=== PATIENT | female | born 1935 | race Caucasian/White ===

== ENCOUNTER 2017-05-26 05:51 | Emergency (ER) | payer MEDICARE, BC ==
[~2017-05-26] VITALS: Ht 154.9 cm; Wt 53.6 kg
[2017-05-26 05:54] VITALS: BP 146/70; TEMP 98
[2017-05-26] MEDS ORDERED: AVALIDE 12.5 MG1 TAB PO (06:11)
[2017-05-26] MEDS ORDERED: SYNTHROID0.088 MG/T PO (06:11)
[2017-05-26] MEDS ORDERED: TYLENOL W/COD1 UDTAB PO (06:37)
[2017-05-26] MEDS ORDERED: ASPERCREME1 EACH TP (06:37)
[2017-05-26 07:00] VITALS: PULSE 86
== END 2017-05-26 07:05 | disposition home or self-care (01) ==
LOC: COL.ER 05:51
DX: S42.002A Fracture of unspecified part of left clavicle, initial encounter for closed fracture (principal); I10 Essential (primary) hypertension; E03.9 Hypothyroidism, unspecified; W01.0XXA Fall on same level from slipping, tripping and stumbling without subsequent striking against object, initial encounter; Y92.009 Unspecified place in unspecified non-institutional (private) residence as the place of occurrence of the external cause

== ENCOUNTER 2019-08-27 13:55 | Emergency (ER) | payer MEDICARE, BC ==
[~2019-08-27] VITALS: Ht 154.9 cm; Wt 55.5 kg
[~2019-08-27 13:55] MED LIST: ASPERCREME1 EACH TP; AVALIDE 12.5 MG1 TAB PO; SYNTHROID0.088 MG/T PO; TYLENOL W/COD1 UDTAB PO
[2019-08-27 14:02] VITALS: TEMP 97.5
[2019-08-27 14:37] LABS: BASO # 0.1 (0.0-0.2); BASO % 0.6 % (0.0-2.0); EOS % 0.3 % (0-4.0); GRAN # 9.3 (1.4-6.5); GRAN % 82.9 % (42.2-75.2); HEMATOCRIT 39.3 % (37.0-47.0); HEMOGLOBIN 13.2 g/dl (12.5-16.0); LYMPH # 1.1 (1.2-3.4); LYMPH % 9.6 % (20.0-51.0); MEAN CELL VOLUME 94 fl (80.0-100.0); MEAN CORPUSCULAR HEMOGLOBIN 32 pg (27.0-31.0); MEAN CORPUSCULAR HGB CONC 34 g/dl (33.0-37.0); MEAN PLATELET VOLUME 8.4 fl (7.4-10.4); MONO # 0.7 (0.1-0.6); MONO % 6.3 % (1.7-9.3); PLATELET COUNT 351 K/mm3 (130-400); RED BLOOD COUNT 4.17 M/mm3 (4.10-5.30); REDCELL DISTRIBUTION WIDTH-CV 12.6 % (11.5-14.5)
[2019-08-27 14:54] LABS: ALBUMIN 4.1 gm/dL (3.5-5.0); BILIRUBIN,TOTAL 0.5 mg/dL (0.0-1.0); CALCIUM 9.3 mg/dL (8.4-10.2); CREATININE, serum 0.92 (0.52-1.25); POTASSIUM 3.8 mmol/L (3.4-5.0); TOTAL PROTEIN 7.2 gm/dL (6.4-8.2)
[2019-08-27 16:21] LABS: COLLECTION METHOD CLEAN CATCH
[2019-08-27 16:35] LABS: MUCOUS Present /lpf; PH 6 (5-8); SQUAMOUS EPITHELIAL 0-2 /hpf; URINE APPEARANCE Cloudy; URINE BACTERIA Rare /hpf; URINE BILIRUBIN Negative (NEGATIVE); URINE BLOOD 1+ (NEGATIVE); URINE COLOR Yellow; URINE GLUCOSE Negative (NEGATIVE); URINE KETONE Negative (NEGATIVE); URINE LEUKOCYTE ESTERASE 1+ (NEGATIVE); URINE NITRATE Negative (NEGATIVE); URINE PROTEIN(semi-quant) Negative (NEGATIVE)
[2019-08-27 17:50] VITALS: BP 152/77
[2019-08-27] MEDS ORDERED: AVAPRO TAB150 MG/TAB PO (18:07)
[2019-08-27 18:16] VITALS: PULSE 74
== END 2019-08-27 18:13 | disposition home or self-care (01) ==
LOC: COL.ER 13:55
PROVIDERS: Emergency Medicine
DX: R55 Syncope and collapse (principal); E87.1 Hypo-osmolality and hyponatremia